=== PATIENT | male | born 1970 | race Caucasian/White ===

== ENCOUNTER → 2022-12-19 | Outpatient (CLI) | LOC: M SOG 08:16 | PROVIDERS: ATTEND Physician Assistant | DX: M79.642 Pain in left hand (principal); M79.641 Pain in right hand; R93.6 Abnormal findings on diagnostic imaging of limbs ==

== ENCOUNTER 2023-03-23 07:04 | Day surgery (SDC) | payer OTHER ==
[~2023-03-23] VITALS: Ht 185.4 cm; Wt 83.6 kg
[~2023-03-23 07:04] MED LIST: B-12100010 PO; BUSP10TA PO; LISI40TA4 PO; METO1TAB33 PO; PRESCAP PO; ROSU20TA5 PO; VITA100093 PO; ceFAZolin SOD 2 GM in IV 1 EA IV ONE
[2023-03-23] MEDS ORDERED: LR 1,000 ML IV SCH ×2 (07:35→10:30)
[2023-03-23] MEDS ORDERED: fentaNYL 250 MCG/5 ML INJECTION As Ordered ONE (07:54)
[2023-03-23] MEDS ORDERED: KETOROLAC 60MG 2ML VIAL As Ordered ONE (07:54)
[2023-03-23] MEDS ORDERED: MIDAZOLAM INJ 2MG/2ML VIAL As Ordered ONE (07:54)
[2023-03-23] MEDS ORDERED: propofoL 200 MG/20 ML VIAL As Ordered ONE (07:55)
[2023-03-23] MEDS ORDERED: ONDANSETRON 4MG 2ML VIAL As Ordered ONE (07:55)
[2023-03-23] MEDS ORDERED: LIDOCAINE 2% 100MG/5ML SDV (FOR ANES.) As Ordered ONE (07:55)
[2023-03-23] MEDS ORDERED: BACITRACIN OINTMENT 30GM TUBE As Ordered ONE (08:35)
[2023-03-23] MEDS ORDERED: BUPIVACAINE HCL 0.25% 30ML VIAL As Ordered ONE (08:35)
[2023-03-23] MEDS ORDERED: fentaNYL 100 MCG/2 ML INJECTION IV PRN (10:30)
[2023-03-23] MEDS ORDERED: ONDANSETRON 4MG 2ML VIAL IV PRN (10:30)
[2023-03-23] MEDS: HYDROMORPHONE HCL 0.5 MG/ 0.5 ML SYRINGE IV PRN ×4 (11:03→11:39)
[2023-03-23] MEDS: NORCO, ANEXSIA 5/325MG TABLET (HYDROcodone/ACETAMINOPHEN) PO PRN ×2 (11:03→11:34)
[2023-03-23] MEDS ORDERED: TRAM50TA2 PO (11:08)
[2023-03-23 12:45] VITALS: BP 129/73
== END 2023-03-23 13:15 | disposition home or self-care (01) ==
LOC: M SDC 07:04
PROVIDERS: ATTEND Orthopaedic Surgery Hand Surgery
DX: M72.0 Palmar fascial fibromatosis [Dupuytren] (principal); I10 Essential (primary) hypertension; E78.5 Hyperlipidemia, unspecified; F17.220 Nicotine dependence, chewing tobacco, uncomplicated; Z79.899 Other long term (current) drug therapy; Z88.5 Allergy status to narcotic agent
CPT/HCPCS: 26045; 88304; J0690; J1100; J1170; J1885; J2250; J2405; J3010

== ENCOUNTER → 2023-09-18 | Outpatient (CLI) | payer OTHER ==
[~2023-09-18] MED LIST changes: -ROSU20TA5 PO; +ROSU20TA61 PO; +TRAM50TA2 PO; -ceFAZolin SOD 2 GM in IV 1 EA IV ONE
== END ==
LOC: M PLAIMG 08:02
PROVIDERS: ATTEND Internal Medicine
DX: M51.26 Other intervertebral disc displacement, lumbar region (principal); M51.36 Other intervertebral disc degeneration, lumbar region

== ENCOUNTER → 2024-03-18 | Outpatient (CLI) | payer OTHER | LOC: M SOG 07:57 | PROVIDERS: ATTEND Orthopaedic Surgery | DX: M54.50 Low back pain, unspecified (principal); M53.86 Other specified dorsopathies, lumbar region ==